=== PATIENT | male | born 1965 | race Caucasian/White ===

== ENCOUNTER → 2021-02-01 | Day surgery (SDC) | payer OTHER ==
[~2021-02-01] VITALS: Ht 175.3 cm; Wt 126.1 kg
[~2021-02-01] MED LIST: COREG 6.25MG6.25 MG PO; COZAAR100 MG PO; HCTZ12.5 MG PO; PERCOCET 7.5/321 TAB PO
[2021-02-01 10:18] LABS: BUN/CREAT RATIO (CALC) 33.9 RATIO; CREATININE 0.59 mg/dL (0.67-1.17)
== END | disposition home or self-care (01) ==
LOC: FAS 08:40
PROVIDERS: Anesthesiology
DX: D17.9 Benign lipomatous neoplasm, unspecified (principal); I10 Essential (primary) hypertension; Z88.0 Allergy status to penicillin; M10.9 Gout, unspecified; Z96.659 Presence of unspecified artificial knee joint; Z72.89 Other problems related to lifestyle
CPT/HCPCS: 36415; 80048; 93005; J1885; J2250; J2370; J2405; J2704; J3010; J7120